=== PATIENT | female | born 1955 | race Asian ===

== ENCOUNTER 2023-03-14 18:34 | Inpatient (IN) | payer OTHER ==
[~2023-03-14] VITALS: Ht 152.4 cm; Wt 44.0 kg
[2023-03-14] MEDS ORDERED: DILTIAZEM HCL 50 MG IV ONE (19:05)
[2023-03-14] MEDS: DILTIAZEM HCL 50 MG IV IV ONE ×2 (19:10→19:37)
[2023-03-14 19:16] LABS: BASOPHILS % (AUTO) 0.3 % (0.0-2.0); EOSINOPHILS # (AUTO) 0.1 K/uL (0.0-0.7); EOSINOPHILS % (AUTO) 1.3 % (0.0-6.0); HEMATOCRIT 41 % (33-45); LYMPHOCYTES # (AUTO) 2.3 K/uL (0.8-4.8); MEAN CORPUSCULAR HEMOGLOBIN 31 PG (26.0-33.0); MEAN CORPUSCULAR HGB CONC 34 g/dl (31.0-36.0); MEAN CORPUSCULAR VOLUME 91 fL (82-100); MONOCYTES # (AUTO) 0.9 K/uL (0.1-1.30); MONOCYTES % (AUTO) 9.9 % (2.0-12.0); NEUTROPHILS # (AUTO) 5.8 K/uL (1.8-8.9); NEUTROPHILS % (AUTO) 63.5 % (43.0-81.0); PLATELET COUNT (AUTO) 455 K/uL (150-450); RED BLOOD CELL COUNT(AUTO) 4.55 MIL/uL (4.0-5.2); RED CELL DISTRIBUTION WIDTH 12.7 % (11.5-15.0); WHITE BLOOD COUNT (AUTO) 9.2 K/uL (4.3-11.0)
[2023-03-14] MEDS ORDERED: ERGO500093 PO (19:25)
[2023-03-14] MEDS ORDERED: ALEN70TA80 PO (19:25)
[2023-03-14] MEDS ORDERED: ALBU18HF2 IH (19:25)
[2023-03-14] MEDS ORDERED: MONT10TA22 PO (19:25)
[2023-03-14] MEDS ORDERED: ATOR10TA PO (19:25)
[2023-03-14] MEDS ORDERED: DILTIAZEM HCL 25 MG IV ONE (19:31)
[2023-03-14 19:37] LABS: CALCIUM, SERUM 9.6 mg/dL (8.5-10.1); CARBON DIOXIDE 26 mmol/L (21-32); CHLORIDE 104 mmol/L (98-107); CREATININE 0.8 mg/dL (0.6-1.3); GLUCOSE 102 mg/dL (74-106); POTASSIUM 3.4 mmol/L (3.5-5.1); SODIUM SERUM 144 mmol/L (136-145); UREA NITROGEN, BLOOD 13 mg/dL (7-18)
[2023-03-14] MEDS: DILTIAZEM HCL IV 125 MG in IV NS 0.9% 100 ML IV PRN (20:26)
[2023-03-14] MEDS ORDERED: Z GUARD REMEDY 4 OZ OINT TP PRN (23:00)
[2023-03-14] MEDS ORDERED: HYDROCODONE/APAP 5/325MG TABLET PO PRN (23:00)
[2023-03-14] MEDS ORDERED: ACETAMINOPHEN 325 MG TABLET PO PRN (23:00)
[2023-03-14] MEDS ORDERED: ONDANSETRON HCL/PF 4 MG/2 ML VIAL IVP PRN (23:00)
[2023-03-14] MEDS ORDERED: MAGNESIUM HYDROXIDE 30 ML UDC PO PRN (23:00)
[2023-03-14] MEDS ORDERED: ZOLPIDEM TARTRATE 5 MG TABLET PO PRN (23:00)
[2023-03-14] MEDS ORDERED: MAG HYDROX/AL HYDROX/SIMETH 30 ML UDC PO PRN (23:00)
[2023-03-14 23:30] VITALS: BP 125/94; O2SAT 97
[2023-03-14] MEDS ORDERED: DILTIAZEM HCL IV 125 MG in IV NS 0.9% 100 ML IV PRN (23:30)
[2023-03-14] MEDS: ENOXAPARIN SODIUM 40 MG/0.4 ML DISP.SYRIN SQ SCH (23:40)
[2023-03-15] VITALS (13 sets, daily range): BP systolic 90–117; BP diastolic 50–99; TEMP 97.5–98; O2SAT 95–98
[2023-03-15 03:37] LABS: BASOPHILS % (AUTO) 0.2 % (0.0-2.0); EOSINOPHILS # (AUTO) 0.1 K/uL (0.0-0.7); EOSINOPHILS % (AUTO) 1.4 % (0.0-6.0); HEMATOCRIT 37 % (33-45); HEMOGLOBIN 12.9 g/dL (11.5-14.8); LYMPHOCYTES # (AUTO) 1.7 K/uL (0.8-4.8); LYMPHOCYTES % (AUTO) 23.4 % (20.0-44.0); MEAN CORPUSCULAR HEMOGLOBIN 32 PG (26.0-33.0); MEAN CORPUSCULAR HGB CONC 35 g/dl (31.0-36.0); MEAN CORPUSCULAR VOLUME 90 fL (82-100); MONOCYTES # (AUTO) 0.7 K/uL (0.1-1.30); MONOCYTES % (AUTO) 10.3 % (2.0-12.0); NEUTROPHILS # (AUTO) 4.6 K/uL (1.8-8.9); NEUTROPHILS % (AUTO) 64.7 % (43.0-81.0); PLATELET COUNT (AUTO) 428 K/uL (150-450); RED CELL DISTRIBUTION WIDTH 13.1 % (11.5-15.0); WHITE BLOOD COUNT (AUTO) 7.2 K/uL (4.3-11.0)
[2023-03-15 03:50] LABS: CALCIUM, SERUM 8.3 mg/dL (8.5-10.1); CREATININE 0.7 mg/dL (0.6-1.3); MAGNESIUM 2.2 mg/dL (1.8-2.4); PHOSPHORUS 3.6 mg/dL (2.5-4.9); POTASSIUM 3.4 mmol/L (3.5-5.1)
[2023-03-15 04:05] LABS: THYROID STIMULATING HORMONE 2.186 uIU/mL (0.358-3.74)
[2023-03-15] MEDS: PANTOPRAZOLE 40 MG TABLET.DR PO SCH (08:10)
[2023-03-15] MEDS: MONTELUKAST SODIUM (10MG) 10 MG TABLET PO SCH (08:10)
[2023-03-15] MEDS: POTASSIUM CHLORIDE 20 MEQ TAB.PRT.SR PO ONE (08:10)
[2023-03-15] MEDS: ATORVASTATIN 10 MG TABLET PO SCH (08:10)
[2023-03-15] MEDS: POTASSIUM CHLORIDE 20 MEQ TAB.PRT.SR PO SCH (09:33)
[2023-03-15] MEDS: METOPROLOL TARTRATE 25 MG TABLET PO SCH (09:35)
[2023-03-15] MEDS ORDERED: APIX5TAB PO (10:35)
[2023-03-15] MEDS ORDERED: METO25TA6 PO (10:35)
== END 2023-03-15 12:18 | disposition home or self-care (01) | DRG 310 ==
LOC: ER 18:37 → ICU 21:42
PROVIDERS: ADMIT Student in an Organized Health Care Education/Training Program; ATTEND Nurse Practitioner Acute Care
DX: I48.91 Unspecified atrial fibrillation (principal); I16.0 Hypertensive urgency; I10 Essential (primary) hypertension; E87.6 Hypokalemia; J45.909 Unspecified asthma, uncomplicated; Z87.891 Personal history of nicotine dependence; E78.5 Hyperlipidemia, unspecified; Z91.013 Allergy to seafood; Z86.16 Personal history of COVID-19
CPT/HCPCS: 36415; 71045-TC; 80048-TC; 80061-TC; 83735-TC; 84100-TC; 84439-TC; 84443-TC; 84484-TC; 85025-TC; 85378-TC; G0378; J1650; J3490; J7030

== ENCOUNTER 2024-12-31 19:53 | Emergency (ER) | payer OTHER ==
[~2024-12-31] VITALS: Ht 157.5 cm; Wt 46.0 kg
[~2024-12-31 19:53] MED LIST: ALBU18HF2 IH; ALEN70TA80 PO; APIX5TAB PO; ATOR10TA PO; ERGO500093 PO; METO25TA6 PO; MONT10TA22 PO
[2024-12-31 21:58] LABS: PLATELET COUNT (AUTO) 341 K/uL (150-450); RED BLOOD CELL COUNT(AUTO) 4.39 MIL/uL (4.0-5.2); RED CELL DISTRIBUTION WIDTH 13.5 % (11.5-15.0); WHITE BLOOD COUNT (AUTO) 6.2 K/uL (4.3-11.0)
[2024-12-31 22:07] LABS: CALCIUM, SERUM 9.0 mg/dL (8.5-10.1); CREATININE 0.6 mg/dL (0.6-1.3); SODIUM SERUM 145.0 mmol/L (136-145); UREA NITROGEN, BLOOD 11.0 mg/dL (7-18)
[2024-12-31 22:50] VITALS: BP 134/77; TEMP 98.1; O2SAT 97
== END 2024-12-31 22:50 | disposition admitted as inpatient to this hospital (09) ==
LOC: ER 20:05
DX: R68.84 Jaw pain (principal); E78.00 Pure hypercholesterolemia, unspecified; I11.9 Hypertensive heart disease without heart failure; I48.91 Unspecified atrial fibrillation; J45.909 Unspecified asthma, uncomplicated; Z79.01 Long term (current) use of anticoagulants; Z79.83 Long term (current) use of bisphosphonates; Z79.899 Other long term (current) drug therapy; Z86.16 Personal history of COVID-19; Z91.013 Allergy to seafood
CPT/HCPCS: 36415; 71045-TC; 80048-TC; 84484-TC; 85025-TC